=== PATIENT | female | born 1980 | race Caucasian/White ===

== ENCOUNTER 2017-03-27 07:02 | Day surgery (SDC) | payer BC ==
[~2017-03-27 07:02] MED LIST: RINGER'S SOLUTION,LACTATED 1,000 ML IV PRN; ceFAZolin SODIUM 2 GM in DEXTROSE 5 % IN WATER 50 ML IV PRN
[2017-03-27 07:30] LABS: Hematocrit 38.3 % (37.0-47.0); Hemoglobin 12.2 gm/dL (12.5-16.0); Mean Cell Volume 75.4 fl (78-100); Mean Corpuscular Hgb Conc 31.9 g/dl (32-36); Mean Platelet Volume 9.3 fl (6.0-9.5); Neutrophil # 6.2 K/mm3 (1.3-6.0); Neutrophil % 72.9 % (42-75.0); Platelet Count 323 K/mm3 (150-450); Red Blood Count 5.08 M/mm3 (4.2-5.4); Red Cell Distribution Width 14.7 % (11.5-14.0); White Blood Count 8.5 K/mm3 (4.0-10.5)
[2017-03-27 07:52] LABS: Albumin * 3.8 gm/dl (3.4-5.0); Anion Gap 15.5 mmol/L (6.8-13.8); BUN/Creatinine Ratio 13.7 (9.0-21.6); Bilirubin, Total 0.5 mg/dL (0.0-1.1); Ca. Corrected For Albumin 8.5 mg/dL (8.4-10.2); Calcium * 8.7 mg/dL (7.9-10.9); Carbon Dioxide 23.7 mmol/L (24-32.6); Potassium 4.2 mmol/L (3.4-4.6); Total Protein 7.5 gm/dL (6.2-8.2)
[2017-03-27] MEDS ORDERED: ceFAZolin SODIUM 1 GM VIAL IV ONE (08:10)
[2017-03-27] MEDS ORDERED: oxyCODONE HCL/ACETAMINOPHEN 1 TAB TABLET PO ONE ×3 (13:19→15:00)
[2017-03-27] MEDS ORDERED: RINGER'S SOLUTION,LACTATED 1,000 ML IV PRN (13:19)
[2017-03-27] MEDS ORDERED: IBUPROFEN 800 MG TABLET PO ONE ×3 (13:19→15:00)
[2017-03-27] MEDS ORDERED: ONDANSETRON HCL/PF 2 MG/ML VIAL IV PRN (13:21)
--- NOTE | 2017-03-27 13:22 | OR ---
Operative Report - Dictated Report Narrative: DATE OF PROCEDURE: 03/27/2017 PROCEDURE: 1. Total laparoscopic hysterectomy, bilateral salpingectomy 2. Lysis of adhesion (120 min) 3. Diagnostic cystoscopy. ANESTHESIA: General, endotracheal intubation. PREOPERATIVE DIAGNOSES: 1. Menorrhagia 2. Dysmenorrhea 3. Enlarged uterus 4. Uterine fibroids 5. Status post x 3 and tubal ligation 6. Obesity BMI 38 (weight 95 kg) POSTOPERATIVE DIAGNOSES: 1. Menorrhagia 2. Dysmenorrhea 3. Enlarged uterus 4. Uterine fibroids 5. Status post x 3 and tubal ligation 6. Obesity BMI 38 (weight 95 kg) SURGEON: Misty Guardado M.D. BRIM EDGE TRIMMER: Niurka FINDINGS: 1. Enlarged uterus, about 12 week size with posterior fibroids. Normal bilateral ovaries and tubes. 2. There was no obvious evidence of tubal ligation. 3. There was omental adhesion to the anterior abdomen near the umbilicus. There were left adnexal adhesions to the sigmoid colon and pelvic side wall. There were dense and extensive adhesions involving the anterior uterus and the lower uterine segment to the anterior abdominal wall and dense adhesions of the broad ligaments near the lower uterine segment. 4. On cystoscopy, the bladder appeared intact and bilateral ureteral jets were seen. SPECIMENS: Uterus, cervix, and both tubes (removed in one piece) DRAINS: None. URINE OUTPUT: 600 ml BLOOD LOSS: 250 ml INTRAOPARATIVE IV FLUIDS: 2800 ml COMPLICATIONS: None. DESCRIPTION OF PROCEDURE: The patient consented to the operation and was taken to the operating room. She was placed on the operating table supine. SCDs were placed on her lower extremities. General anesthesia was induced. Two grams of ancef was given by IV prior to anesthesia induction. She was repositioned in the dorsal lithotomy position. Her right arm was tucked at her side under the drape. Exam under anesthesia revealed an enlarged uterus with minimal descent and with no adnexal mass. The abdomen was prepped with Chloraprep and the vagina was prepped with Betadine. She was draped in the usual sterile fashion. A time-out procedure was conducted to confirm the correct patient for the correct procedure. After time-out, a Tatum catheter was placed into the bladder. A bivalve speculum was placed into the vagina. The vagina and the cervix were prepped with Betadine one more time. The anterior cervix was grasped with a single-tooth tenaculum. The uterus was sounded to 10 cm. A medium size VCare uterine manipulator was inserted into the uterine cavity. The balloon was inflated with 6 cc of air. The single-tooth tenaculum was removed. [employer] speculum was removed. The upper VCare cup was advanced into the vagina to hug the cervix. The lower VCare cup was advanced into the vagina to align with the upper VCare cup and to provide pneumoperitoneum for the procedure. The lower VCare cup was fastened to the uterine manipulator. The surgeon then changed gloves and attention was paid to the abdomen. A small vertical incision was made at the lower edge of the umbilicus. A Veress needle was inserted into the abdominal cavity. Intraabdominal placement was confirmed with a saline drop test and with low entry pressure of -2 mmHg. The abdomen was insufflated with CO2 gas to an intraabdominal pressure of 15 mmHg. The Veress needle was removed. A 5 mm trocar with the laparoscope was inserted through the umbilicus incision into the abdomen. Intraabdominal placement was confirmed with the laparoscope. Survey of the entry site revealed no trauma to the underlying structures. The patient was then placed in Trendelenburg position. Three 5 mm trocars were placed in the lower abdomen. Both left and the right lower quadrant trocars (5 mm) were placed superior and medial to the anterior superior iliac spine to avoid vessels and nerves. A third suprapubic trocar (5 mm) was placed in the midline. All trocars were placed under the direct visualization of the laparoscope. Survey of the abdomen and pelvis revealed the findings noted above. First, the omental adhesions at the anterior abdominal wall were lysed with the Thunderbeat. Next, lysis of adhesions were carried out to release the left fallopian tube and left ovary from the sigmoid colon and the pelvic side wall. The left fallopian tube was elevated. The mesosalpinx was divided with the Thunderbeat. The division was carried to the cornual region. The uteroovarian ligament was divided with the Thunderbeat and the division was carried on the broad ligament through the round ligament towards the lower uterine segment. Dense adhesions were encountered here at the anterior uterus and the lower uterine segment. These were dissected carefully. The course of the left ureter was not identified, but believed to be away from the surgical field. The broad ligament incision was into the anterior leaf and the posterior leaf. Anterior leaf of the broad ligament was dissected towards the bladder uterine reflection. The posterior leaf of the broad ligament was dissected towards the uterosacral ligament. The left uterine vessel was isolated and divided with the Thunderbeat. There was bleeding at the uterine vessel. This was controlled with the Thunderbeat. The lower uterine segment was dissected to free the bladder down. The cardinal ligament complex was divided with the Thunderbeat to the level of vaginal cervical junction. Attention was now turned to the right side. The right fallopian tube was elevated. The mesosalpinx was divided with the Thunderbeat. The division was carried to the cornual region. The uteroovarian ligament was divided with the Thunderbeat and the division was carried on the broad ligament through the round ligament towards the lower uterine segment. Again, dense adhesions were encountered at the anterior uterus and the lower uterine segment. These were dissected carefully. The course of the right ureter was not identified, but believed to be away from the surgical field. The broad ligament incision was into the anterior leaf and the posterior leaf. The anterior leaf of the broad ligament was dissected towards the bladder uterine reflection and to meet with the opposite dissection point at the midline. The posterior leaf of the broad ligament was dissected towards the uterosacral ligament. The right uterine vessel was isolated, and divided with the Thunderbeat. There was bleeding at the uterine vessel. This was controlled with the Thunderbeat. The cardinal ligament complex was divided with the Thunderbeat to the level of vaginal cervical junction. The vaginal fornix was seen well through the VCare cup. The Thunderbeat was used to make an anterior colpotomy over the VCare cup groove. Entry into the vagina was without complications. A circumferential incision was made along the vaginal cervical junction using the VCare cup groove as a guide. Bilateral uterosacral ligament was divided. The cervix was completely divided from the vagina. The surgeon moved to the vaginal area to retrieve the specimen. The VCare uterine manipulator was removed. The cervix was grasped with a single tooth tenaculum. The uterus, cervix and both tubes were removed through the vagina in one piece. The vagina was packed with 2 moist laps to keep the pneumoperitoneum. The surgeon then changed gloves and attention was paid back to the abdomen. The pelvis was thoroughly irrigated with saline. The vaginal opening was closed transversely with 0 Vicryl Endoknot suture in an interrupted fashion using intracorporeal suturing technique and extracorporeal knot tying. The uterosacral ligament was sutured to the vaginal cuff corner for cuff support. The pelvis was irrigated with saline. Extra fluid was suctioned out from the abdomen and pelvis. There was hemostasis in all vessel pedicles. The patient was taken out of Trendelenburg. Three lower abdominal trocars were removed. The abdomen was deflated. The trocar at the umbilicus was removed with the laparoscope. The skin incision was closed with 4-0 Monocryl suture and 2 to 3 cc of 0.25% Marcaine was infiltrated around each incision for post op pain management. The incisions were covered with Steri-Strips. A diagnostic cystoscopy was performed. Vaginal packing was removed and the Tatum catheter was removed. A 70-degree cystoscope was introduced through the urethra into the bladder. Exam of the bladder revealed the bladder was intact. There were urine jets coming out from the left as well as the right ureteral orifice, confirming the integrity of ureters. The cystoscope was removed. The Tatum catheter was not replaced. The patient tolerated the procedure well. All counts were correct and the patient was taken to the recovery room in stable condition. Misty Guardado MD
[2017-03-27 16:32] VITALS: BP 138/72
== END 2017-03-27 07:03 | disposition home or self-care (01) ==
LOC: AMB 07:02
PROVIDERS: ATTEND Obstetrics & Gynecology
PROC: 0UTC4ZZ Resection of Cervix, Percutaneous Endoscopic Approach (ICD-10-PCS; 2017-03-27)
PROC: 0UT74ZZ Resection of Bilateral Fallopian Tubes, Percutaneous Endoscopic Approach (ICD-10-PCS; 2017-03-27)
PROC: 0UT94ZZ Resection of Uterus, Percutaneous Endoscopic Approach (ICD-10-PCS; principal; 2017-03-27 08:00)
DX: D25.1 Intramural leiomyoma of uterus (principal); D25.0 Submucous leiomyoma of uterus; N92.0 Excessive and frequent menstruation with regular cycle; N73.6 Female pelvic peritoneal adhesions (postinfective); I10 Essential (primary) hypertension; J45.20 Mild intermittent asthma, uncomplicated; G47.33 Obstructive sleep apnea (adult) (pediatric); E66.9 Obesity, unspecified; Z68.38 Body mass index [BMI] 38.0-38.9, adult

== ENCOUNTER 2017-03-28 15:17 | Emergency (ER) | payer BC ==
[2017-03-28 15:25] VITALS: BP 134/89
--- NOTE | 2017-03-28 16:01 | ERNOTE ---
Allergy Symptoms - ER Date of Service: 03/28/17 Presenting Symptoms: itching Time Seen by Provider: 03/28/17 16:00 Source: patient, family, RN notes reviewed Exam Limitations: no limitations Immunizations: IMMUNIZATION HX Immunizations Up to Date Yes History of Influenza Vaccine No Hx Pneumococcal Vaccination No Allergies/Adverse Reactions: Allergies No Known Allergies Allergy (Verified 03/27/17 07:25) Home Medications: HOME MEDICATIONS HYDROcodone/ACETAMINOPHEN [Eleele 5-325 Tablet] 1 tab PO Q4H PRN #24 tab [Last Taken Unknown] Ibuprofen [Motrin] 800 mg PO Q8H PRN #30 tablet 03/27/17 [Last Taken Unknown] Ondansetron HCl [Zofran] 1 tab PO Q4H PRN #15 tablet 03/27/17 [Last Taken Unknown] oxyCODONE HCL/ACETAMINOPHEN [Oxycodone-Acetaminophen 5-325] 1 - 2 each PO Q6H PRN #20 tablet 03/28/17 [Last Taken Unknown] - History of Present Illness Narrative: Lizabeth is a 36 year old female who presents to the ED for a possible allergic reaction. She had a hysterectomy here yesterday. Her surgery was done by Dr. Guardado. She was prescribed Eleele for pain and has started having generalized itching. She also reports that her throat feels tight and scratchy. She had general anesthesia and has had this sensation since the surgery. She also has redness on her abdomen from surgical tape. She denies any wheezing or difficulty breathing. Treatment DEEP FAT FRY COOK:: none Location skin rash/itching: Present: diffuse Location swelling: Present: none Identified cause?: Yes Exposure: Present: other med Similar symptoms previously: Yes - recalls having itching d/t pain medication after another surgery Prior Treament: Reports: recently seen, treated by physician Review of Systems - Review of Systems Constitutional: Absent: fever, chills EYE: Present: no symptoms reported ENT: Present: sore throat. Absent: nose congestion, throat swelling Respiratory: Absent: shortness of breath, cough, wheezing, stridor Cardiology: Absent: chest pain, palpitations Gastrointestinal/Abdominal: Present: no symptoms reported Genitourinary: Present: no symptoms reported Musculoskeletal: Present: no symptoms reported Skin: Present: change in color. Absent: rash, lumps Neurological: Absent: weakness, numbness, tingling Endocrine: Present: no symptoms reported Hematologic/Lymphatic: Present: no symptoms reported Psych: Present: no symptoms reported - Patient's Past Medical History Patient History - Medical: Anxiety, Depression, GERD, Other Patient History - Cardiac/Respiratory: Asthma, Hypertension, Sleep Apnea, Other Patient History - Cancer: Skin Patient History - Surgical Procedures: , Hysterectomy, Tubal Ligation, T & A, Other Patient History - Other: None - Family History Mother Family History - Medical: No pertinent hx Family History - Cardiac/Respiratory: CVA/Stroke, Hypertension Family History - Cancer: No pertinent family hx Father Family History - Medical: No pertinent hx Family History - Cardiac/Respiratory: COPD Family History - Cancer: No pertinent family hx - Social History Living Situations: home Abuse History: No History of abuse Psych History: Hx of Anxiety, Hx of Depression, Current tx/ever been on anti- depressants or anti-anxiety meds Smoking Status: Never smoker Alcohol Use: none Drug Use: none - Immunizations Immunizations Up to Date: Yes Hx Pneumococcal Vaccination: No History of Influenza Vaccine: No Physical Exam - Physical Exam General Appearance: Present: wd/wn, alert, no apparent distress, anxious Head Exam: Present: normal inspection. Absent: swelling Eye Exam: Normal inspection: bilateral Ears, Nose, Throat: Present: pharyngeal erythema - mild. Absent: nasal congestion, pharyngeal swelling, dry mucous membranes Neck: Present: normal inspection, nontender, supple Respiratory: Present: no respiratory distress, normal breath sounds, no accessory muscle use, lungs clear. Absent: stridor, wheezing Cardiovascular/Chest: Present: regular rate, rhythm, no murmur Extremity Exam: Present: normal inspection, no edema Neurological Exam: Present: alert, oriented, normal mood/affect, no motor/ sensory deficits Skin Exam: Present: warm/dry, other - Face flushed, red areas present on abdomen where tape was present ED Progress - Vital Signs Patient's Vital Signs:: I have reviewed the patient's vital signs. Vital Signs: Vital Signs 03/28/17 15:18 Temperature 36.8 C Pulse Rate 72 Respiratory 18 Rate Blood Pressure 134/89 O2 Sat by Pulse 99 Oximetry - Progress/Reassessment Chief Complaint: Allergic Reaction Progress:: Improved Plan - Plan Plan: Reassured patient that she is experiencing medication side effects, not an allergic reaction. Benadryl given IM for itching. Will give rx for Percocet as she may tolerate this better, but informed that this may cause similar symptoms. Departure Clinical Impression: Medication side effects Qualifiers: Encounter type: initial encounter Qualified Code(s): T88.7XXA - Unspecified adverse effect of drug or medicament, initial encounter - Departure Disposition: Home Follow Up Needed Condition: Good Additional Instructions: Try oxycodone in place of hydrocodone You can take Benadryl for itching as directed on label - will likely cause drowsiness Continue hydrocortisone cream for red areas on abdomen Follow up as needed for new/worsening symptoms Referrals: Misty Guardado MD [Primary Care Provider] - Prescriptions: oxyCODONE HCL/ACETAMINOPHEN [Oxycodone-Acetaminophen 5-325] 1 - 2 each PO Q6H PRN #20 tablet PRN Reason: Pain
[2017-03-28] MEDS ORDERED: diphenhydrAMINE HCL 50 MG/ML VIAL IM ONE (16:12)
[2017-03-28] MEDS ORDERED: diphenhydrAMINE HCL 50 MG/ML VIAL ONE (16:12)
== END 2017-03-28 16:25 | disposition home or self-care (01) ==
LOC: ER 15:17
DX: T39.1X5A Adverse effect of 4-Aminophenol derivatives, initial encounter (principal); Z90.710 Acquired absence of both cervix and uterus; Z85.828 Personal history of other malignant neoplasm of skin